=== PATIENT | male | born 1930 | race Two or more races ===

== ENCOUNTER 2020-11-02 15:20 | Emergency (ER) | payer OTHER ==
[~2020-11-02] VITALS: Ht 167.6 cm; Wt 48.5 kg
[2020-11-02] MEDS ORDERED: TAMS0.4C (15:31)
[2020-11-02] MEDS ORDERED: ZOVIRAX800 MG PO (16:26)
== END 2020-11-02 16:32 | disposition home or self-care (01) ==
LOC: ER 15:20 → EDBD 15:46 → ER 15:46
DX: B02.9 Zoster without complications (principal)